=== PATIENT | female | born 1970 | race Caucasian/White ===

== ENCOUNTER 2024-09-12 20:03 | Observation (INO) | payer SELFPAY ==
--- NOTE | 2024-09-08 12:19 | PCM.HP.BLA ---
History and Physical Date of Admission: 09/12/24 HPI: The patient is a 54 year old female presenting for pre-operative visit. She is scheduled for laparoscopic-assisted vaginal hysterectomy with left salpingo-oophorectomy, right salpingectomy and cystoscopy, for adenomyosis, uterine fibroids, dysmenorrhea, uterovaginal prolapse on September 12, 2024. Procedure discussed along with risks, benefits and complications. Other alternatives discussed for management. Consent form signed? No. PAST MEDICAL HISTORY PAST MEDICAL HISTORY Diagnosis Date ? Anemia ? Heart sounds, abnormal Pt reproted x10 2014 approx PAST SURGICAL HISTORY PAST SURGICAL HISTORY Procedure Laterality Date ? C-SEC ONLY,PREV C-SEC Pt reproted March 2021 ? LIGATE FALLOPIAN TUBE 03/2021 at [facility] CURRENT MEDICATIONS Current Outpatient Medications Medication Sig Dispense Refill ? norethindrone (AYGESTIN) 5 mg tablet Take 2 tablets by mouth once daily. 180 tablet 0 ? naproxen sodium (ALEVE ORAL) Take by mouth. Unknown dosage ? Magnesium 250 mg tab Take 250 mg by mouth. ? FERROUS SULFATE DRIED ORAL Take by mouth. Unknown dosage ? multivit,thx,calcium,iron,mins (MULTIVITAMIN AND MINERAL ORAL) Take by mouth. No current facility-administered medications for this visit. ALLERGIES: Patient has no known allergies. PERSONAL HISTORY: SOCIAL HISTORY Social History Tobacco Use ? Smoking status: Never ? Smokeless tobacco: Never Vaping Use ? Vaping status: Former Substance Use Topics ? Alcohol use: Never ? Drug use: Never FAMILY HISTORY: FAMILY HISTORY FAMILY HISTORY Problem Relation Age of Onset ? Stroke Mother 88 REVIEW OF SYMPTOMS: GENERAL: denies fevers or chills ENDOCRINOLOGY: has not been on steroids Cardiology : denies palpitations or chest pain Respiratory: denies SOB or cough Hematology: denies history of prolonged bleeding or easy bruising or VTE Allergy: Denies history of personal or family history of allergy to anesthesia PHYSICAL EXAMINATION: VITALS: Last menstrual period 08/20/2024. GENERAL: The patient is well nourished, well hydrated in no acute distress. , The patient is oriented to time, place, and person. NECK: Supple. No lynphadenopathy, normal thyroid, no thyromegaly. Indication abnormal uterine bleeding, prolonged menses Impression Uterus is 126 x 84 x 72 mm and anteverted with a slight retroflexion Myometrium contains direct and indirect signs of adenomyosis. There are multiple fibroids as noted below. Most notably there is what appears to be a FIGO score 2 fibroid and a FIGO score 3 fibroid. Endometrium is 20 mm, heterogenous without any discrete lesions or areas of color-flow Cervix is normal with nabothian cyst Some trace simple free fluid in the pelvis Right ovary is not visualized, no pathology in the right adnexa Left ovary is 57 x 35 x 29 mm. It contains a 43 x 29 x 30 mm unilocular simple cyst, O RADS two. Recommendations Sonographic findings of adenomyosis Multifibroid uterus, consider saline infusion to better characterize endometrium as well as to better characterize any submucosal component O RADS two unilocular simple cyst greater than 3 cm, given she is postmenopausal, recommend repeat imaging in 12 months History Medical History Surgery: section Menstrual History LMP on 07/05/2024 Pelvic ultrasound performed on 07/25/2024 transabdominal, transvaginal, 3D ultrasound examination, Color Doppler examination. View: Suboptimal view: fibroids prevented a clear view of the adnexa Uterus Uterus: Visualized Uterus position: anteverted Description of uterine malformations: none Myometrium: asymmetrically thickened Endometrium: thickened Cervix details: cystic lesions identified suggesting superficial Nabothian cysts Uterus length 126 mm Uterus width 84 mm Uterus height 72 mm Uterus Vol 398.0 cm? Endometrial thickness, total 19.9 mm Uterine fibroid D1 14 mm Uterine fibroid D2 12 mm Uterine fibroid D3 12 mm Uterine fibroid mean 12.4 mm Uterine fibroid vol 0.979 cm? Uterine fibroids findings: Right lateral posterior wall. FIGO score: 2 - > or equal to 50% intramural Uterine fibroid D1 15 mm Uterine fibroid D2 12 mm Uterine fibroid D3 17 mm Uterine fibroid mean 14.7 mm Uterine fibroid vol 1.611 cm? Uterine fibroids findings: Right lateral posterior wall. fig, FIGO score: 3 - contacts endometrium; 100% intramural, visualized without fluid enhancement vs intramural Uterine fibroid D1 22 mm Uterine fibroid D2 21 mm Uterine fibroid D3 22 mm Uterine fibroid mean 21.5 mm Uterine fibroid vol 5.202 cm? Uterine fibroids findings: Posterior. intramural, FIGO score: 4 - Intramural Uterine fibroid D1 34 mm Uterine fibroid D2 28 mm Uterine fibroid D3 41 mm Uterine fibroid mean 34.1 mm Uterine fibroid vol 20.177 cm? Uterine fibroids findings: Left lateral posterior wall. Subserous, FIGO score: 5 - Subserous > or equal to 50% intramural Uterine fibroid D1 16 mm Uterine fibroid D2 13 mm Uterine fibroid D3 19 mm Uterine fibroid mean 15.9 mm Uterine fibroid vol 2.020 cm? Uterine fibroids findings: Left lateral anterior wall. intramural, FIGO score: 4 - Intramural Right Ovary Rt ovary: Not visualized Left Ovary Lt ovary: Visualized Lt ovary D1 57 mm Lt ovary D2 35 mm Lt ovary D3 29 mm Lt ovary Vol 30.8 cm? Lt ovarian cyst(s): Cysts identified Lt ovarian cyst D1 43 mm Lt ovarian cyst D2 29 mm Lt ovarian cyst D3 30 mm Lt ovarian cyst mean 34.0 mm Lt ovarian cyst vol 19.588 cm? Lt ovarian cyst findings: Unilocular simple cyst Cul de Sac Visualized. free fluid visualized: trace EMB 07/29/24 : Secretory endometrium IMPRESSION: Adenomyosis, uterine fibroids, dysmenorrhea, menorrhagia, left ovarian cyst, uterovaginal prolapse PLAN: The risks/benefits/alternatives and personal involved for the planned laparoscopic-assisted vaginal hysterectomy with right salpingectomy left salpingo-oophorectomy and cystoscopy were reviewed with the patient. Her questions were answered to her satisfaction and she desires to proceed. Consent will be signed day of surgery. I reviewed with her postop instructions and expectations. I have reviewed and updated past medical and surgical history, medications and allergies Assessment & Plan Assessment/Plan (1) Adenomyosis: (2) Menorrhagia: QUALIFIERS: Menorrhagia type: with irregular cycle Qualified Code(s): N92.1 - Excessive and frequent menstruation with irregular cycle (3) Intramural uterine fibroid: (4) Left ovarian cyst: (5) Dysmenorrhea: (6) Uterovaginal prolapse:
[2024-09-12] VITALS (17 sets, daily range): BP systolic 107–141; BP diastolic 64–85; PULSE 85–98; RESP 14–18; TEMP 36.2–37.1; O2SAT 96–100; BMI 32.8; BMI 33.8
[2024-09-12 09:17] LABS: Internal QC Validated? YES +Cl - CLEAR BKGD; Pregnancy, Urine Negative Negative
[2024-09-12] MEDS: 0.9% Normal Saline (1000mL) 1,000 ML 15 ML IV (09:24)
[2024-09-12] MEDS: Scopolamine 1mg/72hr Patch 1 PATCH TD (09:24)
[2024-09-12] MEDS: Gabapentin 600 MG Tablet PO (09:25)
[2024-09-12] MEDS: Phenazopyridine 95 MG Tablet 190 MG PO (09:25)
[2024-09-12] MEDS: Celecoxib 200 MG Capsule 400 MG PO (09:26)
[2024-09-12] MEDS: Enoxaparin 40 MG/0.4 ML Syringe SC (09:26)
[2024-09-12] MEDS: Acetaminophen 500 MG Tablet 1000 MG PO ×2 (09:26→23:07)
--- NOTE | 2024-09-12 09:27 | PCM.PRE.AN2 ---
ASA Classification* ASA Classification ASA Classification: 3 Assessment & Plan Anesthesia* Anesthesia Assessment Anesthesia Assessment: Discussed sedation and/or anesthesia options, risks, benefits, and alternatives with patient/parents/legal guardian/POA. Questions invited. The patient/parents/legal guardian/POA seems to understand and agrees to proceed with anesthesia plan. Reviewed the physical assessment, medical history, allergy history and patient home medications list prior to surgery/procedure/anesthetic and documented any changes. Performed airway and anesthesia risk assessments. Anesthesia Type Anesthesia Type: General (PFO , No Air in IV) Anesthesia Focused Assessment* Temperature: 97.8 F Pulse Rate: 98 Blood Pressure: 133/82 Respiratory Rate: 16 Pulse Ox: 100 Airway Assessment Mouth opens: >3 cm Mallampati Score: II Focused Labs Anesthesia Preop lab: CBC WBC Pending 09/12/24 09:20 RBC Pending 09/12/24 09:20 Hgb Pending 09/12/24 09:20 Hct Pending 09/12/24 09:20 Plt Count Pending 09/12/24 09:20 CHEMISTRY Potassium Pending 09/12/24 09:20 Sodium Pending 09/12/24 09:20 Magnesium Pending 09/12/24 09:20 BUN Pending 09/12/24 09:20 Creatinine Pending 09/12/24 09:20 Glucose Pending 09/12/24 09:20 COAG PT Pending 09/12/24 09:20 Urine Test Negative Negative 09/12/24 08:55 Pre-Assessment Diagnosis/Proposed Procedure Planned Operative Procedure(s): LAVH LEFT SALPINGO-OOPHERECTOMY RIGHT SALPINGECTOMY Anesthesia History Anesthesia History - information management officer: Anesthesia History - information management officer Hx Hospitalization No 09/05/24 12:15 Any Problems With Anesthesia No 09/05/24 12:15 Cholinesterase deficiency No 09/05/24 12:15 You/Your Family Experience No 09/05/24 12:15 fever (hyperthermia) with Relationship Recent Exposure to Contagious No 09/12/24 09:10 Disease Does patient have nerve No 09/05/24 12:15 stimulator Patient instructed to have device shut off --Does patient have Pacemaker No 09/12/24 09:10 or ICD? When Was Last Pacemaker Check QUESTION #4 FULL TEXT: You/Your Family Experience fever (hyperthermia) with Anesthesia Last Oral Intake Last Oral intake: Last Oral Intake NPO since 04:30 09/12/24 09:10 Meds taken in AM with sips of water? Meds patient instructed to take am of surgery PONV PONV - information management officer: PONV - information management officer Female Yes 09/05/24 12:15 HX of Motion Sickness Yes 09/05/24 12:15 HX of N/V After Surgery No 09/05/24 12:15 Non-Smoker Yes 09/05/24 12:15 Duration of Surgery greater Yes 09/05/24 12:15 than 60 minutes Number of Risk Factors 4 09/05/24 12:15 PONV Score Severe Risk 09/05/24 12:15 Height & Weight Height & Weight: Anesthesia: Height & Weight Height 5 ft 4 in 09/12/24 09:10 Weight: 86.636 kg 09/12/24 09:10 Body Mass Index (BMI) 32.8 09/12/24 09:10 Respiratory Assessment Respiratory Assessment - information management officer: Respiratory Tract Infection Hx - information management officer Hx Respiratory Tract Infection No: ALLERGIES 09/05/24 12:15 STOP Sleep Apnea STOP Sleep Apnea - information management officer: STOP Sleep Apnea - information management officer Hx Hypertension No 09/05/24 12:15 Hx Sleep Apnea No 09/05/24 12:15 CPAP BIPAP Do you snore loudly (louder Yes 09/05/24 12:15 than talking or can be heard Do you often feel tired/ Yes 09/05/24 12:15 fatigued/ sleepy during daytime? Has anyone observed you stop No 09/05/24 12:15 breathing during sleep? STOP Results Positive 09/05/24 12:15 QUESTION #5 FULL TEXT : Do you snore loudly (louder than talking or can be heard through closed doors)? Tobacco Use History Tobacco Use History - information management officer: Tobacco Use History - information management officer Tobacco Use Smoking Status Never smoker 09/05/24 12:15 Hx Tobacco Use No 09/05/24 12:15 Years Smoking Packs Smoked per Day Smoking Cessation Date was within the last 15 years Hx Smoking Cessation Date Hx Smoking Cessation Counseling Hematologic Medial History Hematologic Hx - information management officer: Hematologic Medical Hx - documentation designer Hx of Blood Transfusion No 09/05/24 12:15 Hx of Transfusion in last 3 No 09/05/24 12:15 Months Date of Last Transfusion (if within last 3 months) Ever experience any problems No 09/05/24 12:15 with transfusion(s)? Specify any problems Hx of Preganancy in last 3 No 09/05/24 12:15 Months Nurse Filling Out Transfusion DSCHRIBER 09/05/24 12:15 & Questions: Date: 09/05/24 09/05/24 12:15 Time: 12:16 09/05/24 12:15 Patient unable to answer at this time (ie. confused, unrespo /Reproduction History /Reproductive History - information management officer: /Reproductive Hx- information management officer Hx Now No 09/05/24 12:15 Gestational Age (in weeks): EDC: Hx Hx Para Hx Section SAB No 09/05/24 12:15 Active Medications Active Medications: Current Medications Generic Name Dose Route Start Last Admin Trade Name Freq PRN Reason Stop Dose Admin Acetaminophen 1,000 mg 09/12/24 10:30 Acetaminophen 500 Mg Tablet PO 09/12/24 10:31 PREOP ONE Celecoxib 400 mg 09/12/24 10:30 Celecoxib 200 Mg Capsule PO 09/12/24 10:31 X1 ONE Dexamethasone Sodium Phosphate 8 mg 09/12/24 10:30 Dexamethasone 4 Mg/Ml Vial IV 09/12/24 10:31 X1 ONE Enoxaparin Sodium 40 mg 09/12/24 10:30 Enoxaparin 40 Mg/0.4 Ml Syringe SC 09/12/24 10:31 X1 ONE Gabapentin 600 mg 09/12/24 10:30 Gabapentin 600 Mg Tablet PO 09/12/24 10:31 PREOP ONE Cefazolin Sodium 2 gm/ N/A 20 mls @ 400 mls/hr 09/12/24 10:30 IV 09/12/24 10:32 PREOP ONE Sodium Chloride 1,000 mls @ 15 mls/hr 09/12/24 08:55 IV 09/17/24 22:14 .Q48H [facility] Protocol Insulin Human Lispro 0 unit 09/12/24 10:30 Insulin Lispro 100 Unit/Ml Insuln.Pen SC 09/12/24 18:00 Q4H PRN PRN BG >/= 180, SEE PROTOCOL Protocol Ondansetron HCl 4 mg 09/12/24 10:30 Ondansetron 4 Mg/2 Ml Vial IV 09/12/24 10:31 X1 ONE Phenazopyridine HCl 190 mg 09/12/24 10:30 Phenazopyridine 95 Mg Tablet PO 09/12/24 10:31 X1 ONE Scopolamine HBr 1 patch 09/12/24 10:30 Scopolamine 1mg/72hr Patch TD 09/12/24 10:31 X1 ONE PFSH Medical History PFO (patent foramen ovale) Wears glasses Depression Arthritis Anemia Back pain Migraine headache Difficulty swallowing Heartburn Non-smoker Shortness of breath on exertion History of edema Fatigue History of echocardiogram History of stress test History of irregular heartbeat Home Medications ?Medication ?Instructions ?Recorded ?Last Taken ?Type ferrous sulfate 325 mg (65 mg 325 mg PO BID 09/05/24 Unknown History iron) tablet (iron) magnesium 250 mg tablet 250 mg PO BID 09/05/24 Unknown History multivitamin (Daily Multi-Vitamin 1 tab PO DAILY 09/05/24 Unknown History tablet) naproxen sodium 220 mg capsule 220 mg PO BID PRN pain 09/05/24 Unknown History (Aleve) Allergy/AdvReac Type Severity Reaction Status Date / Time tranexamic acid AdvReac Severe Other Verified 09/12/24 09:10 Surgical History Hx of wisdom tooth extraction History of Social History Smoking Status: Never smoker Review of Systems (Anesthesia) ROS Narrative System reviewed and no additional complaints, except as documented.
[2024-09-12 09:33] LABS: Hematocrit 31.5 % (37-47); Hemoglobin 10.2 g/dL (12.0-15.0); Mean Corp Hgb Conc 32.4 g/dL (32-36); Mean Corpuscular Hgb 29.9 pg (27.0-32.0); Mean Corpuscular Volume 92.4 fL (81-99); Mean Platelet Vol. 9.2 fl (6.2-12.0); Platelet Count 556 K/mm3 (150-450); RBC Distribution Width CV 12.7 % (11.6-14.6); RBC Distribution Width SD 43.1 fl (35.1-43.9); Red Blood Count 3.41 M/mm3 (4.2-5.4); White Blood Count 5.5 K/mm3 (4.4-11.0)
--- NOTE | 2024-09-12 09:49 | EKG12_ITS ---
Test Reason : preop Blood Pressure : */* mmHG Vent. Rate : 92 BPM Atrial Rate : 92 BPM P-R Int : 164 ms QRS Dur : 84 ms QT Int : 372 ms P-R-T Axes : 35 -18 3 degrees QTcB Int : 460 ms Normal sinus rhythm Normal ECG No previous ECGs available Confirmed by KIKI YOUNG, NEMESIO ([id number]), technical writer and editor PHILLIP LEVIN ([id number]) on 09/12/2024 2:03:43 PM Referred By: Lexie Parish Confirmed By: NEMESIO SWANSON MD
[2024-09-12 09:50] LABS: Prothrombin Time (Protime)PT. 12.8 SECONDS (11.7-14.9)
[2024-09-12 09:51] LABS: Partial Thromboplast Time 31.6 Seconds (24.1-36.2)
[2024-09-12 09:54] LABS: Anion Gap 9 (5-15); BUN 10 mg/dL (7-18); BUN/Creat Ratio 15.3 RATIO (10-20); Calcium,Total 9.3 mg/dL (8.5-10.1); Chloride 104 mmol/L (98-107); Creatinine, Serum 0.66 mg/dL (0.55-1.02); EST Glomerular Filtration Rate 100 mL/min (>60); Est Glom Filt Rate - Afr Amer 121 mL/min (>60); Glucose 100 mg/dL (74-106); Magnesium 1.9 mg/dL (1.6-2.6); Potassium 3.7 mmol/L (3.5-5.1); Sodium Level 137 mmol/L (136-145)
[2024-09-12] MEDS: Magnesium 2 GM for ERAS IV (10:10)
--- NOTE | 2024-09-12 10:22 | PCM.DC ---
Discharge Instructions Diet Discharge Diet: Light diet - advance as tolerated DC O2, CPAP, BIPAP needs Home O2 Discharge instructions: No Dressing / Incision May shower in (days): 1 May resume sexual activity in: 6-8 weeks and - (Nothing in your vagina for 6 weeks. No vaginal or anal intercourse for 6-8 weeks) Lifting Restrictions: 15 lbx x 6 weeks Additional Activity Instructions:: Nothing in your vagina for 6-8 weeks until cleared by Dr. Parish, no tub baths or swimming for 6 weeks Dressing / Incision Call your doctor if your incision/area has: Sudden Increased Bleeding, Foul Smelling Discharge and Swelling at the incision site Call your doctor if you observe: Fever of 101 or Higher and Using more than 1 pad per hour Cleanse incision/area with: Soap & Water and - (Your incisions have skin glue, it can get wet, leave the glue on until it falls off. ) Follow Up Care Please Follow Up With: Lexie Parish MD When: With my office in 1-2 and 6 weeks or as needed or send a [employer] message. [phone] Test Results: Test results from this visit will be discussed in further detail at your follow-up appointment, if applicable. Discharge Plan Admission Attending Provider: Lexie Parish Primary Care Provider: Jennifer Burroughs Instructions Print Language: Frisian Discharge Orders/Prescriptions Prescriptions: New oxycodone 5 mg tablet 5 mg PO Q8H PRN (Reason: severe pain) 7 Days Qty: 10 0RF Continued multivitamin [Daily Multi-Vitamin] Tablet 1 tab PO DAILY ferrous sulfate [iron] 325 mg (65 mg iron) tablet 325 mg PO BID magnesium 250 mg tablet 250 mg PO BID naproxen sodium [Aleve] 220 mg capsule 220 mg PO BID PRN (Reason: pain) Disposition Disposition (needs filled in before D/C Order can be placed): Home, Self Care
[2024-09-12] MEDS: Cefazolin 2 GM in Syringe IV (10:30)
--- NOTE | 2024-09-12 10:30 | HYST_PTH ---
PATIENT: NOE ELLIS LOC: MS3 U#:[id number] AGE/SX: 54/F ROOM: MS318 RE09/12/[address]: Dr. Lexie Parish MD : 1970 BED: 1 DIS: 09/13/2024 SPEC #: [id number] RECD: 09/12/24 17:48 STATUS: MEAGAN WOMACK #: [id number] ROLAND: 09/12/24 10:[address]: Lexie Parish DEPT: SURGICAL PATHOLOGY RECD BY: Maureen Ochoa ENTERED: 09/15/24 09:27 SP TYPE: HYSTERECT OTHR DR: Jennifer Burroughs MD Tissues: Uterus, NOS Procedures: Surgery Specimen Level V HEADER OPERATION: Bilateral salpingectomy, LAVH PRE-OP DIAGNOSIS: Adenomyosis, menorrhagia, intramural uterine fibroid, left ovarian cyst,, dysmenorrhea, uterovaginal prolapse TISSUE SUBMITTED: Uterus, cervix, bilateral fallopian tubes MICROSCOPIC DIAGNOSIS Uterus, cervix, bilateral fallopian tubes, hysterectomy, bilateral salpingectomy: Cervix - Chronic cystic cervicitis. Endometrium - Extensive autolytic changes, favor proliferative endometrium. Myometrium - Intramural leiomyomas (largest measuring 4.0cm in greatest dimension). - Adenomyosis. One fallopian tube - Endometriosis involving mucosa. Second fallopian tube - no pathologic diagnosis. See comment. 09/16/2024 COMMENT All the slides containing sections of nodular masses (leiomyomas) are sent to [facility] for expert opinion and reviewed by Dr. Russell and above diagnosis is rendered. The complete report is viewable in patients' EMR. MICROSCOPIC DESCRIPTION Slides are reviewed. GROSS DESCRIPTION Received in fixative is one container labeled with the patient's name and designated uterus, cervix, bilateral fallopian tubes. The specimen consists of a hysterectomy specimen consisting of uterus with cervix and detached bilateral fallopian tubes. The uterus with cervix weighs 430 gm and measures 14.0 x 12.0 x 9.0 cm. Body of the uterus is deformed. The serosal surface is bull glistening. Focal area of defect is noted at the serosal surface of the uterus. The ectocervical mucosa is unremarkable. The external os is slit-like in contour. The endocervical canal measures 3.5 cm in length and the endocervical mucosa is bull glistening and unremarkable. Section of the cervix reveals multiple cysts filled with mucoid material. The triangular endometrial cavity measures 7.5 cm in length and 3.5 cm in width. The endometrium is bull glistening and measures 0.2 cm in thickness. Sections of the uterine wall reveals multiple nodular masses, largest mass measures 4.0cm in greatest dimension. Sections of these masses reveal bull whorled cut surfaces without areas of hemorrhage, necrosis or cystic degeneration. Uterine wall measures up to 5.0cm in thickness. Also present in the container are two detached fallopian tubes measuring 4.5cm in length and 0.5cm in diameter and 5.0cm in length and 0.5cm in diameter. Fimbrial ends are identified. Section of the one fallopian tube reveals focally hemorrhagic fluid. Sections of the second fallopian tube reveal unremarkable cut surfaces Technician Trainee sections are submitted in eleven cassettes as follows: 1 - anterior cervix, 2 - posterior cervix, 3 & 4 - anterior uterine wall, 5 & 6 - posterior uterine wall, 7- largest nodular mass, 8- second largest nodular mass, 9- smaller nodular masses, 10- one fallopian tube filled focally with bloody fluid, 11- second fallopian tube. : 09/15/2024 More sections of the largest nodular mass are submitted in four additional cassettes: 12-15. . 09/16/2024 TC:1 CPT: 47836
--- NOTE | 2024-09-12 10:30 | HYST_PTH ---
PATIENT: NOE ELLIS LOC: MS3 U#:[id number] AGE/SX: 54/F ROOM: MS318 RE09/12/[address]: Dr. Lexie Parish MD : 1970 BED: 1 DIS: 09/13/2024 SPEC #: [id number] RECD: 09/12/24 17:48 STATUS: MEAGAN WOMACK #: [id number] ROLAND: 09/12/24 10:[address]: Lexie Parish DEPT: SURGICAL PATHOLOGY RECD BY: Maureen Ochoa ENTERED: 09/15/24 09:27 SP TYPE: HYSTERECT OTHR DR: Jennifer Burroughs MD Tissues: Uterus, NOS Procedures: Surgery Specimen Level V HEADER OPERATION: Bilateral salpingectomy, LAVH PRE-OP DIAGNOSIS: Adenomyosis, menorrhagia, intramural uterine fibroid, left ovarian cyst,, dysmenorrhea, uterovaginal prolapse TISSUE SUBMITTED: Uterus, cervix, bilateral fallopian tubes MICROSCOPIC DIAGNOSIS Uterus, cervix, bilateral fallopian tubes, hysterectomy, bilateral salpingectomy: Cervix - Chronic cystic cervicitis. Endometrium - Extensive autolytic changes, favor proliferative endometrium. Myometrium - Intramural leiomyomas (largest measuring 4.0cm in greatest dimension). - Adenomyosis. One fallopian tube - Endometriosis involving mucosa. Second fallopian tube - no pathologic diagnosis. 09/16/2024 MICROSCOPIC DESCRIPTION Slides are reviewed. GROSS DESCRIPTION Received in fixative is one container labeled with the patient's name and designated uterus, cervix, bilateral fallopian tubes. The specimen consists of a hysterectomy specimen consisting of uterus with cervix and detached bilateral fallopian tubes. The uterus with cervix weighs 430 gm and measures 14.0 x 12.0 x 9.0 cm. Body of the uterus is deformed. The serosal surface is bull glistening. Focal area of defect is noted at the serosal surface of the uterus. The ectocervical mucosa is unremarkable. The external os is slit-like in contour. The endocervical canal measures 3.5 cm in length and the endocervical mucosa is bull glistening and unremarkable. Section of the cervix reveals multiple cysts filled with mucoid material. The triangular endometrial cavity measures 7.5 cm in length and 3.5 cm in width. The endometrium is bull glistening and measures 0.2 cm in thickness. Sections of the uterine wall reveals multiple nodular masses, largest mass measures 4.0cm in greatest dimension. Sections of these masses reveal bull whorled cut surfaces without areas of hemorrhage, necrosis or cystic degeneration. Uterine wall measures up to 5.0cm in thickness. Also present in the container are two detached fallopian tubes measuring 4.5cm in length and 0.5cm in diameter and 5.0cm in length and 0.5cm in diameter. Fimbrial ends are identified. Section of the one fallopian tube reveals focally hemorrhagic fluid. Sections of the second fallopian tube reveal unremarkable cut surfaces Tourist Guide sections are submitted in eleven cassettes as follows: 1 - anterior cervix, 2 - posterior cervix, 3 & 4 - anterior uterine wall, 5 & 6 - posterior uterine wall, 7- largest nodular mass, 8- second largest nodular mass, 9- smaller nodular masses, 10- one fallopian tube filled focally with bloody fluid, 11- second fallopian tube. SJ: 09/15/2024 TC:1 CPT: 67159
[2024-09-12] MEDS: dexAMETHasone 4 MG/ML Vial 8 MG IV (10:35)
[2024-09-12] MEDS: Bupivacaine Mpf 0.5% 30 ML VIAL (10:50)
[2024-09-12 11:38] LABS: Bedside Glucose 110 mg/dL (74-106)
[2024-09-12] MEDS: Lidocaine 1%/Epi 1:200 (30ml) 30 ML AMPUL (12:00)
[2024-09-12] MEDS: Ondansetron 4 MG/2 ML Vial IV (12:21)
--- NOTE | 2024-09-12 12:46 | OP.PCM_ITS ---
Problems Associated Problem List Diagnoses (1) Uterovaginal prolapse: (2) Dysmenorrhea: (3) Left ovarian cyst: (4) Intramural uterine fibroid: (5) Menorrhagia: (6) Adenomyosis: Operative Report (Standard) Operative Information Date of Procedure: 09/12/24 Pre-Operative Diagnosis: menorrhagia, fibroids, adenomyosis, left ovarian cyst, uterovaginal prolapse Post-Operative Diagnosis: menorrhagia, fibroids, adenomyosis, uterovaginal prolapse Surgery/Procedure Performed: LAVH, bilateral salpingectomy, uterus 450 g emergency vehicle technician: Yes Electrical Hardware Engineer: Keturah Simmons Tasks completed by first line supervisor: Closing, Altering tissue, Insert Trochanter, Hemostasis: Electrocautery, Trocar and Retracting Additional gynecological assistant?: No Type of Anesthesia: General RN Documented Start/Stop Times: Operation Date: 09/12/24 10:30 Case Time Into Pre-Op 09/12/24 08:50 Procedure Start Time: 10:45 Procedure Stop Time: 12:47 Select all DRAINS/GRAFTS/IMPLANTS that apply: None Estimated Blood Loss: 500 Fluids Replaced: 2000 Specimen collected: Yes Description of specimen(s) removed: uterus, cervix, bilateral fallopian tubes Description of surgery: The patient was taken to the operating room where she was prepped and draped in the dorsal lithotomy position. Her arms were tucked to the side and padded and her legs were placed in the yellowfin stirrups. Care was taken to ensure that she was placed in a neurologically safe and neutral position. A weighted speculum was placed in the vagina and the anterior lip of the cervix was grasped with a single-tooth tenaculum. The uterus sounded to 11 centimeters. The ZUMI uterine manipulator was placed and secured. The Saenz catheter was placed to straight drain. Attention was turned to the abdominal portion of the case. Before skin incisions were made they were infiltrated with 0.5% Marcaine solution for local anesthetic. A 5 mm left upper incision was made and while tenting the anterior abdominal wall up with towel clamps a 5 mm blade less trocar and sleeve were advanced directly into the peritoneal cavity using the Visiport. Peritoneal placement was confirmed with the laparoscope the pneumoperitoneum was created, and the underlying abdominal contents were intact. The patient was placed in Trendelenburg and the above findings were noted. Right and left lateral 5 mm trochars were placed under direct visualization without difficulty. The antimesenteric portion of the tube was clamped sealed and transected serially on both sides with the LigaSure device. The round ligaments were clamped sealed and transected and a window was made in the peritoneum. The utero-ovarian ligaments were then clamped, sealed and transected with the LigaSure device and the pedicles were hemostatic. Both ovaries were normal and the decision was made not to perform a left oophorectomy, there was just a paratubal cyst that was likely identified as the ovarian cyst and this was ruptured incidentally during the surgery. It was removed with the fallopian tube The bladder flap was dissected down with the LigaSure device and blunt dissection and the uterine arteries were then skeletonized. The uterine arteries were clamped, sealed and transected on both sides with the LigaSure device. At this point the pedicles were all examined and found to be hemostatic. Attention was turned to the vaginal portion of the case. There was a significant amount of backbleeding from the uterus during this portion of the case. 1% lidocaine with dilute epinephrine solution was used to infiltrate the anterior vaginal epithelium over the cervix. An incision was made from 3 to 9:00 across the anterior vaginal epithelium and the vaginal epithelium was dissected back with blunt sharp dissection. The anterior colpotomy incision was made. The posterior colpotomy was then made sharply. Posterior vaginal epithelium was tagged to the peritoneum. The uterosacral ligaments were then clamped, transected and suture-ligated. The cardinal ligaments were clamped, transected and suture-ligated. There was a significant amount of bleeding from the left uterine artery up to this point of the case must have been bleeding after we finished the laparoscopic portion the case while we are doing the vaginal portion. The remaining portion of the cardinal ligament was then clamped, transected and suture-ligated and then the bleeding from the left uterine artery was secured. The uterus was then freed and brought through the vaginal incision intact it was weighed and was 450 g At this point, the pedicles were all examined and there was some bleeding from the right side near the pedicles and a Jacki clamp was placed around them and a suture sure ligature placed. There is also significant amount of bleeding from the vaginal cuff and the posterior vaginal cuff was then run with a 2-0 Vicryl suture in a running locked fashion. Excellent hemostasis was then noted.. The vaginal cuff was then closed in a horizontal fashion with interrupted 0 Vicryl [id number] sutures. Care was taken to secure the vagina to the uterosacral ligaments. The Saenz catheter was removed and a cystoscopy was performed. The bladder appeared normal and was intact. Both ureteral orifices were noted and both ureteral jets were seen. The cystoscope was removed and the Saenz catheter was placed back to straight drain. A sponge stick was placed in the vagina to help place traction against the vaginal cuff. The laparoscope was reinserted into the abdomen and the pneumoperitoneum was re- created. The pedicles were reexamined and found to be hemostatic. The vaginal cuff was hemostatic. Hemablast was placed over the peritoneal edges and no active bleeding was noted through the Hemablast. The right and left lateral ports were taken out and the sites were hemostatic. The pneumoperitoneum was released and even under low pressure there was no bleeding of any of the pedicles are vaginal cuff. The LUQ port was removed. The umbilical skin incisions were closed with Monocryl suture and skin glue by the VERIFICATION SPECIALIST with me prior. The vaginal instruments were removed by me and a vaginal sweep was completed by me. The surgery was performed by me with assistance other than the portions dictated as above. There were no qualified residents available for this procedure. All sponge lap and needle counts were correct and the patient was transferred to the recovery room in stable condition. Surgical Findings: enlarged boggy uterus, normal cervix and ovaries, normal fallopian tubes with evidence of previous tubal sterilization Complications Complications: No Admit VTE Documentation VTE Present on Admission: No VTE Mechan Device Prophylaxis: SCD's and Thigh High FLAVIO Hose VTE Pharm Prophylaxis ordered?: Yes
--- NOTE | 2024-09-12 13:03 | PCM.POST.ANE ---
Anesthesia: Postop Eval I Current Vital Signs Temperature: 98.3 F Pulse Rate: 96 Blood Pressure: 129/75 Respiratory Rate: 16 Pulse Ox: 98 Oxygen Delivery Method: Simple Mask Oxygen Flow Rate (L/min): 6 Assessment Airway patent: Yes Spontaneous unlabored respirations: Yes Mental status: Asleep nausea: No Vomiting: No Anesthesia Complication: No Fluid Hydration Crystalloid volume administer (ml): 2,000 Total IV fluid infused: 2,000 Progress Note Anesthesia document: Postop Eval 1 completed: Yes
--- NOTE | 2024-09-12 13:53 | POSTOPAN2_ITS ---
Anesthesia Postop Eval I Sum Postop Eval Completion status Anesthesia document: Postop Eval 1 completed: Yes Anesthesia Postop Eval I Summary Anesthesia Postop Eval I Summary: Anesthesia Postop Eval I: Assessment Summary Airway patent Yes 09/12/24 13:04 ASSISTANT STORE [email or web address] Spontaneous unlabored Yes 09/12/24 13:04 ASSISTANT [email or web address] respirations Mental status Asleep 09/12/24 13:04 [email or web address] [email or web address] nausea No 09/12/24 13:04 ASSISTANT STORE [email or web address] Vomiting No 09/12/24 13:04 ASSISTANT STORE [email or web address] Anesthesia Postop Eval I: Fluid Summary Crystalloid volume administer 2,000 09/12/24 13:04 ASSISTANT [email or web address] (ml) Colloids volume administered ( ml) Blood Product volume administered (ml) Total IV fluid infused 2,000 09/12/24 13:04 ASSISTANT STORE [email or web address] Anesthesia Postop Eval I: Summary Notes Anesthesia Complication No 09/12/24 13:04 ASSISTANT STORE [email or web address] Anesthesia Complication Comment: Post-operative progress note Anesthesia: Postop Eval II Evaluation Mental status: Awake Pain Level: 0 nausea: No Vomiting: No
--- NOTE | 2024-09-12 13:53 | PCM.POSTANE2 ---
Anesthesia Postop Eval I Sum Postop Eval Completion status Anesthesia document: Postop Eval 1 completed: Yes Anesthesia Postop Eval I Summary Anesthesia Postop Eval I Summary: Anesthesia Postop Eval I: Assessment Summary Airway patent Yes 09/12/24 13:04 [email or web address] [email or web address] Spontaneous unlabored Yes 09/12/24 13:04 [email or web address] respirations Mental status Asleep 09/12/24 13:04 [email or web address] [email or web address] nausea No 09/12/24 13:04 RESEARCH [email or web address] Vomiting No 09/12/24 13:04 [email or web address] [email or web address] Anesthesia Postop Eval I: Fluid Summary Crystalloid volume administer 2,000 09/12/24 13:04 RESEARCH [email or web address] (ml) Colloids volume administered ( ml) Blood Product volume administered (ml) Total IV fluid infused 2,000 09/12/24 13:04 RESEARCH [email or web address] Anesthesia Postop Eval I: Summary Notes Anesthesia Complication No 09/12/24 13:04 [email or web address] [email or web address] Anesthesia Complication Comment: Post-operative progress note Anesthesia: Postop Eval II Evaluation Mental status: Awake Pain Level: 0 nausea: No Vomiting: No
[2024-09-12 16:09] LABS: Hematocrit 26.9 % (37-47); Hemoglobin 8.7 g/dL (12.0-15.0); Mean Corp Hgb Conc 32.3 g/dL (32-36); Mean Corpuscular Hgb 30.3 pg (27.0-32.0); Mean Corpuscular Volume 93.7 fL (81-99); Mean Platelet Vol. 9.4 fl (6.2-12.0); Platelet Count 508 K/mm3 (150-450); RBC Distribution Width CV 12.7 % (11.6-14.6); RBC Distribution Width SD 44.3 fl (35.1-43.9); Red Blood Count 2.87 M/mm3 (4.2-5.4); White Blood Count 13.3 K/mm3 (4.4-11.0)
--- NOTE | 2024-09-12 20:14 | SUR.PHASEII ---
AT APPROXIMATELY 1999, DR Zen JEFFRIES NOTIFIED THAT PATIENT HAS NOT VOIDED SINCE HER SURGERY. BLADDER SCAN RESULTS = 243 CC. PATIENT HAS HAD APPROXIMATELY 2500 CC IV FLUID AND APPROXIMATELY 2000 CC ORAL INTAKE. VITAL SIGNS STABLE. NO C/O PAIN OR DISCOMFORT ORDERS RECEIVED TO STRAIGHT CATH PATIENT AND ADMIT PATIENT TO MED SURG FLOOR FOR OBSERVATION. CBC IN AM. DR. JEFFRIES WILL SPEAK TO DR RONQUILLO TO SEE PATIENT.
[2024-09-12] MEDS: Lactated Ringers 1,000 ML 75 ML IV (21:22)
[2024-09-12] MEDS: Docusate Sodium 100 MG Capsule PO (21:22)
[2024-09-12] MEDS: Ketorolac 30 MG/ML Syringe IV (23:06)
[2024-09-13 01:05] VITALS: BP 132/69; PULSE 98; RESP 16; TEMP 36.6; O2SAT 95
[2024-09-13 05:05] VITALS: BP 120/67; PULSE 96; RESP 16; TEMP 36.9; O2SAT 98
[2024-09-13] MEDS: Ketorolac 30 MG/ML Syringe IV (05:19)
[2024-09-13] MEDS: Acetaminophen 500 MG Tablet 1000 MG PO (05:19)
[2024-09-13 07:40] VITALS: O2SAT 95
[2024-09-13 08:20] VITALS: BP 111/63; PULSE 97; RESP 16; TEMP 36.9; O2SAT 97
[2024-09-13 08:37] LABS: Absolute Lymphocyte Count 1.79 X10^3/uL (0.83-4.51); Absolute Neutrophil Count 8.2 X10^3/uL (2.0-7.7); Basophil# 0.02 X10^3/uL; Basophil% 0.2 % (0-1); Eosinophil# 0.02 X10^3/uL; Eosinophils% 0.2 % (0-5); Hematocrit 24.5 % (37-47); Hemoglobin 7.7 g/dL (12.0-15.0); Lymphocyte # 1.79 X10^3/ul (0.83-4.51); Lymphocyte % 16.4 % (19-41); Mean Corp Hgb Conc 31.4 g/dL (32-36); Mean Corpuscular Hgb 29.6 pg (27.0-32.0); Mean Corpuscular Volume 94.2 fL (81-99); Mean Platelet Vol. 9.5 fl (6.2-12.0); Monocyte# 0.83 X10^3/uL; Monocyte% 7.6 % (0-10); NRBC Flagged by Analyzer 0 % (0-5); Neutrophil # 8.21 X10^3/uL (2.7-7.7); Neutrophil % 75.2 % (47-70); Platelet Count 491 K/mm3 (150-450); RBC Distribution Width CV 12.9 % (11.6-14.6); RBC Distribution Width SD 44.6 fl (35.1-43.9); White Blood Count 10.9 K/mm3 (4.4-11.0)
--- NOTE | 2024-09-13 09:53 | PN.OBGYN_ITS ---
Subjective Subjective Pain controlled. Voiding without difficulty now. Ambulating. No complaints. Take Iron supplement daily Objective Data Objective Data Vital Signs: Vital Signs Temp Pulse Resp BP Pulse Ox O2 Del Method O2 Flow Rate 98.5 F 97 16 111/63 97 Room Air 4 09/13/24 08:20 09/13/24 08:20 09/13/24 08:20 09/13/24 08:20 09/13/24 08:20 09/13/24 08:20 09/12/24 14:15 Oxygen Flow Rate (L/min) 4 Oxygen Delivery Method Room Air Weight: 89.4 kg Body Mass Index (BMI) 33.8 Intake & Output: Intake and Output for Last 24 Hours 09/11/24 09/12/24 09/13/24 23:59 23:59 23:59 Intake Total 2305.25 / 2305.25 Output Total 930 / 1280 1909 / 0 Balance 1375.25 / 1025.25 -1910 / -1910 Lab / Micro Data 09/13/24 06:58 09/12/24 09:20 Labs: Laboratory Results - last 24 hr 09/12/24 09:16: POC Glucose 110 H 09/12/24 09:20: Sodium 137, Potassium 3.7, Chloride 104, Carbon Dioxide 24.0, Anion Gap 9, BUN 10, Creatinine 0.66, Estim Creat Clear Calc 103.80, Est GFR (MDRD) Af Amer 121, Est GFR (MDRD) Non-Af 100, BUN/Creatinine Ratio 15.3, Glucose 100, Calcium 9.3, Magnesium 1.9, Blood Type O POSITIVE, Antibody Screen NEGATIVE 09/12/24 15:45: WBC 13.3 H, RBC 2.87 L, Hgb 8.7 L, Hct 26.9 L, MCV 93.7, MCH 30.3, MCHC 32.3, RDW Std Deviation 44.3 H, RDW Coeff of Montrell 12.7, Plt Count 508 H, MPV 9.4 09/13/24 06:58: WBC 10.9, RBC 2.60 L, Hgb 7.7 L, Hct 24.5 L, MCV 94.2, MCH 29.6, MCHC 31.4 L, RDW Std Deviation 44.6 H, RDW Coeff of Montrell 12.9, Plt Count 491 H, MPV 9.5, Immature Gran % (Auto) 0.400, Neut % (Auto) 75.2 H, Lymph % (Auto) 16.4 L, [place] % (Auto) 7.6, Eos % (Auto) 0.2, Baso % (Auto) 0.2, Absolute Neuts (auto) 8.2 H, Absolute Lymphs (auto) 1.79, Nucleated RBC % 0 ROS Constitutional Constitutional: Denies fatigue, fever(s) or malaise Eyes Eyes: Denies change in vision ENT HEENT: Denies dizziness or headache(s) Cardiovascular Cardiovascular: Denies chest pain, dyspnea or lightheadedness Respiratory/Chest Respiratory/Chest: Denies cough or dyspnea Gastrointestinal Gastrointestinal: Denies change in bowel habits Genitourinary Genitourinary: Denies burning urination or genital lesions Integumentary Integumentary: Denies rash Neurologic Neurologic: Denies confusion, dizziness, headache(s), numbness or weakness Physical Exam Const alert and no apparent distress General Appearance: cooperative HEENT normocephalic Resp normal respiratory effort GI soft to palpation and non-tender Inspection: incision intact Extremity no calf tenderness General Extremity: edema Skin Rashes: No rashes noted Psych activity/motor behavior normal Assessment & Plan (1) S/P hysterectomy: (2) Postoperative urinary retention: PLAN: resolved PLAN: Plan Discharge home Has Rx already Postop appointment scheduled
== END 2024-09-13 10:52 | disposition home or self-care (01) ==
LOC: SDC 20:16 → MS3 20:16
PROVIDERS: Anesthesiology; Admitting Provider Obstetrics & Gynecology; PCP Student in an Organized Health Care Education/Training Program; Referring Provider Obstetrics & Gynecology; Visit Provider Obstetrics & Gynecology
PROC: 0UT9FZZ Resection of Uterus, Via Natural or Artificial Opening With Percutaneous Endoscopic Assistance (ICD-10-PCS; CPT 58554; principal; 2024-09-12 10:15)
DX: N81.4 Uterovaginal prolapse, unspecified (principal); D25.1 Intramural leiomyoma of uterus; N83.202 Unspecified ovarian cyst, left side; N92.1 Excessive and frequent menstruation with irregular cycle; N88.8 Other specified noninflammatory disorders of cervix uteri; R33.8 Other retention of urine; N94.6 Dysmenorrhea, unspecified; D64.9 Anemia, unspecified; Z79.899 Other long term (current) drug therapy; Z87.891 Personal history of nicotine dependence
CPT/HCPCS: 58554; 00944; 80048; 81025; 82962; 83735; 85025; 85027; 85610; 85730; 86850; 86900; 86901; 88307; 93005; 96361; 96374; 96376; 99221; G0378; J2405